=== PATIENT | female | born 1975 | race Caucasian/White ===

== ENCOUNTER 2022-01-14 09:14 | Outpatient (CLI) | payer OTHER, SELFPAY ==
--- NOTE | 2022-01-14 09:45 | CRLHL7_ITS ---
For Patients: As a result of the Cures Act, medical imaging exams and procedure reports are released immediately into your electronic medical record. You may view this report before your referring provider. If you have questions, please contact your health care provider. BILATERAL DIGITAL SCREENING MAMMOGRAM WITH COMPUTER-AIDED DETECTION WITH TOMOSYNTHESIS CLINICAL HISTORY: Routine screening exam. COMPARISON: 01/08/2021, 12/30/2019, 12/27/2018. TECHNIQUE: Digital mammogram in CC and MLO projections including computer-aided detection (CAD) and tomosynthesis. BREAST COMPOSITION: The breasts are extremely dense, which lowers the sensitivity of mammography FINDINGS: RIGHT Breast: No suspicious findings. LEFT Breast: There is a new oval nodule within the lower aspect of the left breast located 3 cm from the nipple, likely new fibrocystic change although further evaluation indicated. IMPRESSION: LEFT breast asymmetry/mass. RECOMMENDATIONS: Left breast ultrasound recommended. The [facility] will contact the patient for follow-up. BI-RADS Category 0: Incomplete: Need Additional Imaging Evaluation and/or Prior Mammograms for Comparison Dictated by Leonel Pino MD @ 01/14/2022 2:42:02 PM/lorene MIGEL/Dictated by: Leonel Pino MD @ 01/14/2022 2:41:00 PM (Electronically Signed)
== END 2022-01-14 09:15 | disposition home or self-care (01) ==
LOC: MAMMO 09:14
PROVIDERS: PCP Internal Medicine; Visit Provider Internal Medicine
DX: Z12.31 Encounter for screening mammogram for malignant neoplasm of breast (principal); N63.20 Unspecified lump in the left breast, unspecified quadrant
CPT/HCPCS: 77063; 77067

== ENCOUNTER 2022-01-17 10:48 | Outpatient (CLI) | payer OTHER, SELFPAY ==
--- NOTE | 2022-01-17 11:15 | US_ITS ---
Final Report Patient: NICKIE Ureña [facility]LY [facility] Facility:?[facility] Patient ID:?[id number] :?[id number] Study:?US Breast Left DR. MCCALLUM TO READ-01/17/2022 12:06:06 PM Ordering Physician:MACRINA Final Report: LEFT BREAST ULTRASOUND, 01/17/2022 CLINICAL HISTORY: Left breast mass/asymmetry. COMPARISON: Mammogram 01/14/2022 TECHNIQUE: Real-time ultrasound imaging of left breast with imaging documentation. FINDINGS: Targeted LEFT breast ultrasound performed 6 o`clock 3 cm from the nipple. In this location, there is a simple anechoic cyst measuring 2.6 x 1.1 x 3.5 cm. Increased through-transmission noted. Other smaller cysts are present. IMPRESSION: Simple cyst 6 o`clock 3 cm from the nipple measuring 2.6 x 1.1 x 3.5 cm LEFT breast. RECOMMENDATIONS: Routine screening mammograms. Results and recommendations were discussed with the patient at the time of the exam. BI-RADS Category 2: Benign Dictated by Leonel Mccallum MD @ 01/17/2022 12:15:48 PM PT/Dictated by: Leonel Mccallum MD @ 01/17/2022 12:15:00 PM (Electronic Signature)
== END 2022-01-17 10:49 | disposition home or self-care (01) ==
PROVIDERS: PCP Internal Medicine; Visit Provider Internal Medicine
DX: N63.20 Unspecified lump in the left breast, unspecified quadrant (principal); R92.8 Other abnormal and inconclusive findings on diagnostic imaging of breast
CPT/HCPCS: 76642

== ENCOUNTER 2022-02-22 08:34 | Outpatient (CLI) | payer OTHER, SELFPAY ==
[2022-02-22 12:58] LABS: Cholesterol* 187 mg/dL (90-199)
[2022-02-22 12:59] LABS: HDL Cholesterol* 63 mg/dL (>=50); LDL Cholesterol Calculated 110 mg/dL (<100); Triglycerides* 72 mg/dL (40-149)
[2022-02-22 13:42] LABS: TSH With Reflex to FT4* 0.826 uIU/mL (0.270-4.200)
== END 2022-02-22 08:35 | disposition home or self-care (01) ==
PROVIDERS: PCP Internal Medicine; Visit Provider Registered Nurse
DX: R63.4 Abnormal weight loss (principal); E78.00 Pure hypercholesterolemia, unspecified
CPT/HCPCS: 80061; 84443

== ENCOUNTER 2022-03-31 10:08 | Outpatient (CLI) | payer OTHER, SELFPAY ==
--- NOTE | 2022-03-31 10:15 | CRLHL7_ITS ---
For Patients: As a result of the Cures Act, medical imaging exams and procedure reports are released immediately into your electronic medical record. You may view this report before your referring provider. If you have questions, please contact your health care provider. CLINICAL HISTORY: BILATERAL breast pain. COMPARISON: Mammogram 01/14/2022 and ultrasound 01/17/2022. Additional ultrasounds dated 09/28/2021, 07/06/2020, 01/06/2020 TECHNIQUE: Real-time ultrasound imaging of BILATERAL breasts with imaging documentation. FINDINGS: On the RIGHT, multiple simple anechoic cysts are present. The largest is located within the lower outer quadrant 8 o`clock 3 cm from the nipple measuring 1.7 x 1.3 x 1.6 cm. On the LEFT, there is a circumscribed cyst at 6 o`clock 3 cm from the nipple measuring 2.3 x 1.3 x 1.8 cm. This cyst is slightly smaller. Hypoechoic cysts are present adjacent to the nipple at 3 o`clock measuring 5 x 5 x 5 mm and 6 x 4 x 6 mm. These hypoechoic cysts are similar to prior studies. IMPRESSION: Multiple BILATERAL cysts. No evidence of malignancy. RECOMMENDATION: Clinical follow-up. Consider ultrasound-guided cyst aspiration. Results and recommendations were discussed with the patient at the time of the exam. BI-RADS Category 2: Benign A lay language report of this examination will be provided to the patient. Dictated by Leonel Pino MD @ 03/31/2022 12:10:24 PM CRL:[email or web address] RD/Dictated by: Leonel Pino MD @ 03/31/2022 12:10:00 PM (Electronically Signed)
== END 2022-03-31 10:09 | disposition home or self-care (01) ==
LOC: US 10:08
PROVIDERS: PCP Internal Medicine; Visit Provider Obstetrics & Gynecology
DX: N64.4 Mastodynia (principal); N60.01 Solitary cyst of right breast; N60.02 Solitary cyst of left breast
CPT/HCPCS: 76642

== ENCOUNTER 2023-03-01 08:32 | Outpatient (CLI) | payer OTHER, SELFPAY ==
--- NOTE | 2023-03-01 08:45 | CRLHL7_ITS ---
For Patients: As a result of the Cures Act, medical imaging exams and procedure reports are released immediately into your electronic medical record. You may view this report before your referring provider. If you have questions, please contact your health care provider. DIGITAL DIAGNOSTIC BILATERAL MAMMOGRAM USING TOMOSYNTHESIS AND COMPUTER-AIDED DETECTION RIGHT BREAST ULTRASOUND CLINICAL HISTORY: RIGHT breast lump. COMPARISON: 01/14/2022, 09/28/2021, 01/08/2021. TECHNIQUE: Digital BILATERAL mammogram in four projections. Tomosynthesis and CAD utilized. Real-time ultrasound imaging of RIGHT breast with imaging documentation. BREAST COMPOSITION: The breasts are extremely dense, which lowers the sensitivity of mammography. FINDINGS: 3D CC/MLO BILATERAL mammogram images submitted. Benign calcifications are present bilaterally. Circumscribed nodular density is noted in the area of palpable concern RIGHT breast. No architectural distortion. No adenopathy. Targeted RIGHT breast ultrasound performed. At 8 o`clock 4 cm from the nipple there is a circumscribed anechoic simple cyst measuring 2.4 x 1.4 x 2.1 cm. IMPRESSION: Simple cyst RIGHT breast 8 o`clock 4 cm from the nipple measuring 2.4 cm, previously this measured 1.7 cm. No evidence of malignancy. RECOMMENDATIONS: Annual BILATERAL screening mammography. Results and recommendations discussed with the patient. BI-RADS Category 2: Benign A lay language report of this examination will be provided to the patient. Dictated by Leonel Pino MD @ 03/01/2023 10:29:32 AM jj/Dictated by: Leonel Pino MD @ 03/01/2023 10:29:00 AM (Electronically Signed)
--- NOTE | 2023-03-01 09:15 | CRLHL7_ITS ---
For Patients: As a result of the Cures Act, medical imaging exams and procedure reports are released immediately into your electronic medical record. You may view this report before your referring provider. If you have questions, please contact your health care provider. PLEASE SEE DIGITAL DIAGNOSTIC BILATERAL MAMMOGRAM PERFORMED SAME DAY CRL:[email or web address] lópez/Dictated by: Leonel Pino MD @ 03/01/2023 10:29:00 AM (Electronically Signed)
== END 2023-03-01 08:33 | disposition home or self-care (01) ==
LOC: MAMMO 08:33
PROVIDERS: PCP Internal Medicine; Visit Provider Physician Assistant
DX: N63.10 Unspecified lump in the right breast, unspecified quadrant (principal)
CPT/HCPCS: 76642; 77066; G0279

== ENCOUNTER 2024-03-11 07:55 | Outpatient (CLI) | payer OTHER, SELFPAY ==
--- NOTE | 2024-03-11 08:15 | CRLHL7_ITS ---
For Patients: As a result of the Century Cures Act, medical imaging exams and procedure reports are released immediately into your electronic medical record. You may view this report before your referring provider. If you have questions, please contact your health care provider. BILATERAL SCREENING MAMMOGRAM WITH COMPUTER-AIDED DETECTION AND TOMOSYNTHESIS TECHNIQUE: CC and MLO views were obtained. These mammographic images have been obtained using full-field digital technique. These mammographic images were interpreted with the benefit of computer-aided detection. Breast Tomosynthesis was used in this interpretation. COMPARISON FILM: 03/01/23, 01/14/22, 09/28/21. FINDINGS: The breasts are extremely dense, which lowers the sensitivity of mammography IMPRESSION: There is no radiographic evidence for malignancy. ASSESSMENT: BI-RADS Category 2: Benign RECOMMENDATION: Routine screening mammogram in 1 year. A lay language report of this examination will be provided to the patient. Leonel Pino M.D. Diagnostic Radiologist [email or web address] MIGEL/Dictated by: Leonel Pino MD @ 03/11/2024 8:30:00 AM (Electronically Signed)
== END 2024-03-11 07:56 | disposition home or self-care (01) ==
LOC: MAMMO 07:55
PROVIDERS: PCP Internal Medicine; Visit Provider Internal Medicine
DX: Z12.31 Encounter for screening mammogram for malignant neoplasm of breast (principal); R92.2 Inconclusive mammogram
CPT/HCPCS: 77063; 77067

== ENCOUNTER 2024-11-25 20:43 | Emergency (ER) | payer OTHER, SELFPAY ==
--- NOTE | 2024-11-25 20:49 | ED.GENADULT ---
HPI - General Adult General Time Seen by Provider: 20:49 Date Seen: 11/25/24 Chief complaint: Unspecified Complaint, Adult Stated complaint: runny nose/high fever/coughing Time Seen by Provider: 11/25/24 20:49 Source: patient, RN notes reviewed and old records reviewed Mode of arrival: ambulatory Limitations: no limitations History of Present Illness HPI narrative: 41-year-old female who comes in today with cold symptoms. She reports clear runny nose, cough, scratchy throat, some chills, no fever with T-max 100?. This been going on for 3 days. No chest pain, no shortness of breath, eating and drinking normally, no urinary symptoms. No vomiting or diarrhea. Related Data Home Medications ?Medication ?Instructions ?Recorded ?Confirmed ascorbic acid (vitamin C) 500 mg 500 mg PO DAILY 03/28/22 11/25/24 capsule calcium 250 mg (as 1 tab PO ONCE 03/28/22 11/25/24 citrate)-vitamin D3 5 mcg (200 unit) tablet cetirizine 10 mg capsule (All Day 10 mg PO QDAY PRN 03/28/22 11/25/24 Allergy (cetirizine)) folic acid 800 mcg tablet 0.8 mg PO QDAY 03/28/22 11/25/24 multivitamin (Multiple Vitamins 1 tab PO QAM 03/28/22 11/25/24 tablet) Allergies Allergy/AdvReac Type Severity Reaction Status Date / Time adhesive Allergy Severe Rash Verified 11/25/24 20:55 penicillin V Allergy Intermediate Rash Verified 11/25/24 20:55 amoxicillin Allergy Mild Hives Verified 11/25/24 20:55 diphenhydramine Allergy Unknown Jittery Verified 11/25/24 20:55 feeling metronidazole AdvReac Unknown Nausea to Verified 11/25/24 20:55 oral mad PFSH PFSH Medical History History of cardiac murmur (2000) ?Z86.79 - Personal history of other diseases of the circulatory system (ICD-10) Family History Maternal Grandmother Breast cancer Other Family history of colon cancer Family history of hyperlipidemia High blood pressure Parkinson's disease Stroke Social History (Updated 02/21/24 @ 08:57 by Missy Chacon ~ TRANSPORTATION COORDINATOR, TRANSPORTATION COORDINATOR) Narrative: 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 What is your current living situation?: I presently have a place to live Problems where you live: no known problems In the past 12 months, utilities in danger of being shut off: no In past 12 months, lack of transportation kept you from medical appts, meetings, work, or getting things needed for daily living: no In the past 12 mos, have been you worried that your food would run out before you had money to buy more?: never true In the past 12 mos, the food you bought just didn't last and you didn't have money to buy more?: never true Smoking Status: Never smoker Second hand tobacco smoke exposure: No How often do you have a drink containing alcohol: never AUDIT-C Alcohol total score: 0 Non-prescribed substance use: denies use How often does anyone, including family, friends and others, physically hurt you: never How often does anyone, including family, friends and others, insult or talk down to you: never How often does anyone, including family, friends and others, threaten you with harm: never How often does anyone, including family, friends and others, scream or curse at you: never Exam Narrative: Exam Narrative: General: Well-developed and well-nourished, no acute distress Head: Atraumatic and normocephalic Eyes: Pupils are equal reactive, extraocular motions intact, conjunctiva clear ENT: External nose and ears are normal, posterior pharynx without erythema or exudate Neck: No midline cervical tenderness, full spontaneous range of motion the neck, trachea midline, no adenopathy Heart: Regular rate and rhythm no murmurs or thrills Lungs: Clear to auscultation bilaterally without wheezes or crackles Abdomen: Soft, nontender, nondistended with active bowel sounds Musculoskeletal: No tenderness, deformity, or edema Neurologic: Awake, alert, and oriented x3, no gross focal neurologic deficits, cranial nerves intact as tested Psych: Mood and affect are appropriate Skin: No rashes Const: Vital Signs, click to edit/add: Vital Signs - 24 hr 11/25/24 20:51 Temperature 98.8 F Pulse Rate [Right Pulse Oximeter] 85 Respiratory Rate 18 Blood Pressure [Ri ght Upper Arm] 155/70 H Pulse Oximetry 97 Oxygen Delivery Me thod Room Air Course Course ED Course: Reviewed prior urgent care visit from June 2024 which was for right thumb pain thought to be related to soft tissue injury with negative x-ray. Patient presents today with upper respiratory symptoms of cough, runny nose, scratchy throat, and some chills. No fever with T-max 100?. No vomiting or diarrhea, eating and drinking normally, normal urine output. Patient is concerned she is dehydrated, no tachycardia or hypotension, normal skin turgor, no vomiting, no diarrhea and no recorded fever. Patient will be given water in the emergency department, trouble swab ordered. Anticipate discharge with anticipatory guidance for symptom management. Reevaluation(s) Time of Reevaluation #1: 21:39 Reevaluation #1: Labs independently interpreted by me with positive COVID test. Encourage symptom management, stable for discharge. Vital Signs Vital signs: Initial Vital Signs Temperature 98.8 F 11/25/24 20:51 Temperature Source Temporal Artery Scan 11/25/24 20:51 Pulse Rate 85 11/25/24 20:51 Respiratory Rate 18 11/25/24 20:51 Blood Pressure 155/70 H 11/25/24 20:51 Blood Pressure Mean 98 11/25/24 20:51 Blood Pressure Position Sitting 11/25/24 20:51 Pulse Oximetry 97 11/25/24 20:51 Oxygen Delivery Method Room Air 11/25/24 20:51 Vital Signs Temperature 98.8 F 11/25/24 20:51 Pulse Rate 85 11/25/24 20:51 Respiratory Rate 18 11/25/24 20:51 Blood Pressure 155/70 H 11/25/24 20:51 Pulse Oximetry 97 11/25/24 20:51 Oxygen Delivery Method Room Air 11/25/24 20:51 Temperature 98.8 F 11/25/24 20:51 Pulse Rate 85 11/25/24 20:51 Respiratory Rate 18 11/25/24 20:51 Blood Pressure 155/70 H 11/25/24 20:51 Pulse Oximetry 97 11/25/24 20:51 Oxygen Delivery Method Room Air 11/25/24 20:51 Medical Decision Making Lab Data Labs: Lab Results 11/25/24 Range/Units 20:52 SARS-CoV-2 (PCR) POSITIVE SARS-CoV-2 A (Negative) Influenza Type A (PCR) Negative PCR FLU A (Negative) Influenza Type B (PCR) Negative PCR FLU B (Negative) RSV (PCR) Negative PCR RSV (Negative) Discharge Plan Discharge Clinical Impression: COVID Patient Disposition: Home, Self-Care Condition: Stable Instructions: Viral Syndrome (ED), COVID-19 (Coronavirus Disease 2019) (ED) Additional Instructions: Take Tylenol and ibuprofen as needed for fevers or body aches. Make sure drinking plenty of fluids. Activity Level: No Restrictions Discharge Diet: Regular Prescriptions: No Action multivitamin [Multiple Vitamins] Tablet 1 tab PO QAM folic acid 800 mcg tablet 0.8 mg PO QDAY ascorbic acid (vitamin C) 500 mg capsule 500 mg PO DAILY calcium citrate-vitamin D3 250 mg-5 mcg (200 unit) tablet 1 tab PO ONCE All Day Allergy (cetirizine) 10 mg capsule 10 mg PO QDAY PRN Follow Up/Referrals: Oliva Amezcua MD [Primary Care Provider, Internal Medicine] [facility] Al[facility] Inst[facility]
[2024-11-25 20:51] VITALS: BP 155/70; PULSE 85; RESP 18; TEMP 37.1; O2SAT 97; BMI 20.4
[2024-11-25 21:38] LABS: PCR FLU A Negative PCR FLU A (Negative); PCR FLU B Negative PCR FLU B (Negative); PCR RSV Negative PCR RSV (Negative); SARS PCR* POSITIVE SARS-CoV-2 (Negative)
[2024-11-25 21:41] VITALS: BP 145/78; PULSE 81; RESP 18; TEMP 37.1; O2SAT 97
[2024-11-25 21:42] VITALS: BP 145/78; PULSE 81; RESP 18; TEMP 37.1
== END 2024-11-25 21:54 | disposition home or self-care (01) ==
PROVIDERS: Emergency Provider Family Medicine; PCP Internal Medicine
DX: U07.1 COVID-19 (principal); R68.83 Chills (without fever); R09.89 Other specified symptoms and signs involving the circulatory and respiratory systems; R05.9 Cough, unspecified
CPT/HCPCS: 87631; 99282; 99283; 99284

== ENCOUNTER 2025-02-21 08:51 | Outpatient (CLI) | payer OTHER, SELFPAY | END 2025-02-21 08:52 | disposition home or self-care (01) | LOC: NFLDREF 02-25 15:55 | PROVIDERS: PCP Internal Medicine; Referring Provider Internal Medicine; Visit Provider Registered Nurse | DX: Z13.6 Encounter for screening for cardiovascular disorders (principal) | CPT/HCPCS: 80061 ==

== ENCOUNTER 2025-03-26 14:35 | Outpatient (CLI) | payer OTHER, SELFPAY ==
--- NOTE | 2025-03-26 14:40 | CRLHL7_ITS ---
For Patients: As a result of the Century Cures Act, medical imaging exams and procedure reports are released immediately into your electronic medical record. You may view this report before your referring provider. If you have questions, please contact your health care provider. INDICATION: BILATERAL SCREENING MAMMOGRAM, ASYMPTOMATIC 50 Y/O FEMALE COMPARISON: 03/11/2024, 03/01/2023, 03/31/2022 TECHNIQUE: Digital mammogram in CC and MLO projections including computer-aided detection (CAD) and tomosynthesis. BREAST COMPOSITION: The breasts are heterogeneously dense, which may obscure small masses. FINDINGS: No suspicious findings. ASSESSMENT: BI-RADS 2 Benign RECOMMENDATION: Annual screening mammogram. A lay language report of this examination will be provided to the patient. Dictated by: Leonila Taveras MD @ 03/27/2025 21:04:30 (Electronically Signed)
== END 2025-03-26 14:36 | disposition home or self-care (01) ==
LOC: MAMMO 14:35
PROVIDERS: PCP Internal Medicine; Visit Provider Internal Medicine
DX: Z12.31 Encounter for screening mammogram for malignant neoplasm of breast (principal); R92.333 Mammographic heterogeneous density, bilateral breasts
CPT/HCPCS: 77063; 77067